=== PATIENT | female | born 1975 | race Caucasian/White ===

== ENCOUNTER 2018-08-31 15:00 | Observation (INO) ==
[2018-08-31 15:24] VITALS: BMI 29.5
--- NOTE | 2018-08-31 15:47 | RAD ---
Examination: PA chest one view History: Chest pain SOB Findings: Normal heart size with clear lungs and pleural spaces. There is no mediastinal or hilar abnormality. Impression: Examination within normal limits. Reported By:
[2018-08-31 15:48] LABS: BASOPHILS # (AUTO) 0.1 X10^3/uL (0.0-0.1); BASOPHILS % (AUTO) 1.3 % (0.2-1.0); EOSINOPHILS # (AUTO) 0.6 x10^3/uL (0.0-0.2); HEMATOCRIT 38.3 % (36.0-47.0); HEMOGLOBIN 13.3 g/dL (12.0-16.0); LYMPHOCYTES # (AUTO) 2.2 X10^3/uL (1.3-2.9); LYMPHOCYTES % (AUTO) 25.5 % (21.0-51.0); MEAN CORPUSCULAR HEMOGLOBIN 32.3 pg (27.0-34.0); MEAN CORPUSCULAR HGB CONC 34.8 g/dL (33.0-35.0); MEAN CORPUSCULAR VOLUME 92.9 fL (80.0-100.0); MEAN PLATELET VOLUME 7.8 fL (7.4-11.0); MONOCYTES # (AUTO) 0.8 x10^3/uL (0.3-0.8); MONOCYTES % (AUTO) 9.1 % (0.0-13.0); NEUTROPHILS % (AUTO) 57.1 % (42.0-75.0); PLATELET COUNT 237 X10^3/uL (150.0-450.0); RED BLOOD COUNT 4.12 X10^6/uL (3.5-5.4); RED CELL DISTRIBUTION WIDTH 13.6 % (11.6-16.5); WHITE BLOOD COUNT 8.7 X10^3/uL (3.6-10.0)
[2018-08-31 16:07] LABS: BLOOD UREA NITROGEN 19 mg/dL (7-18); CALCIUM 9.2 mg/dL (8.5-10.1); CARBON DIOXIDE 27.4 mmol/L (21-32); CHLORIDE 106 mmol/L (98-107); CREATININE 0.89 mg/dL (0.55-1.02); SODIUM 139 mmol/L (136-145); TROPONIN I < 0.02 ng/mL (0-1.5); eGFR NON BLACK RACES > 60 (>60)
[2018-08-31 16:12] LABS: ALANINE AMINOTRANSFERASE 24 Units/L (12-78); ALBUMIN 3.7 g/dL (3.4-5.0); ALKALINE PHOSPHATASE 73 Units/L (46-116); ASPARTATE AMINO TRANSFERASE 19 Units/L (15-37); CKMB % 0.4 % (<4); CREATINE KINASE 401 Units/L (26-192); CREATINE KINASE MB 1.4 ng/mL (0-4.0); MAGNESIUM 2.2 mg/dL (1.7-2.9); TOTAL PROTEIN 7.1 g/dL (6.4-8.2)
--- NOTE | 2018-08-31 17:12 | DR.CP ---
HPI - Time Seen Time seen: 17:08 - PCP Primary Care Physician: HARRY - Complaint Chief Complaint Doctor Comments: Patient is complaining of xiphoid chest pain described as having "pressure in the center of her chest for the past 12 hours getting worst when she walks. She is also complaining of PABLO with SOB with her heart racing when she walks. She denies nausea, vomiting, cold, cough, fever or chills. States she is a patient of Dr. Alcantara and she is taking Albilify; prozac; and dexilant. she stopped smoking two months ago and was smoking 2-3 cigarettes daily. She drinks at times but denies drug usage. Chief Complaint:: PT C/O CHEST PAIN, SOB, N/V. LT SHOULDER PAIN AND SWEATS. PT STATES SHE WAS WOKE UP WITH THE PAIN. PT STATES THE PAIN HAS BEEN OFF AND ON ALL DAY. - Reviewed Nurses Notes Review: Yes - Source History Provided: Patient - Mode of Arrival Mode of Arrival: Ambulatory - Timing Onset of Chief Complaint: 08/31/18 Came on: Suddenly Pain: Present Now - Duration Duration: Intermittent How lon Duration: Hours - Location Location of Chest Pain: Chest Chest Pain Radiation Location: None - Context Onset: At rest Cardiac Risk Factors: Family History PE Risk Factors: None History of: None Prehospital Care: None - Quality Quality: Pressure like - Severity Severity: Moderate - Modifying Factors Worsens: Exertion, Movement Impoves: Nothing - Associated Signs and Symptoms Associated Signs and Symptoms: None PMH - PMH Past Medical History: Yes Past Medical History Comment: BIPOLAR, CERVICAL CA Past Surgical History: Yes Surgical History: Appendectomy, Hysterectomy, Other Past Surgical History Comment: CYST REMOVAL - Family History History of Family Medical Conditions: No - Social History Does any household member use tobacco: No Alcohol Use: Rarely Do you use any recreational Drugs:: No Lives With: Family Lives Where: Home - infectious screening In the last 2 months have you had wt loss of >10#?: NO Have you had fever, night sweats or hemotysis?: No Have you traveled outside the country in the last 6 months?: No Isolation: Standard ROS - Review of Systems Constitutional: No Symptoms Reported Eyes: No Symptoms Reported ENTM: No Symptoms Reported Respiratoy: No Symptoms Reported, Short of Breath Cardiovascular: No Symptoms Reported, Chest Pain Gastrointestinal/Abdominal: No Symptoms Reported. negative: See HPI, Abdominal Pain, Constipation, Diarrhea, Nausea, Vomiting, Food Intolerance, Other Genitourinary: No Symptoms Reported. negative: See HPI, Discharge, Dysuria, Frequency, Hematuria, Pain, Bleeding, Other Neurological: No Symptoms Reported, Weakness Musculoskeletal: No Symptoms Reported Integumentary: No Symptoms Reported. negative: See HPI, Change in Color, Change in Hair/Nails, Dryness, Lesions, Lumps, Rash, Itching, Wound, Bruises, Juandice, Other Hematologic/Lymphatic: No Symptoms Reported. negative: See HPI, Anemia, Blood Clots, Easy Bleeding, Easy Bruising, Swollen Glands, Lymphadenopathy, Other Endocrine: No Symptoms Reported Psychiatric: No Symptoms Reported, Anxiety, Depression PE - General Limitations: No Limitations General Appearance: Alert, In No Apparent Distress - Head Head Exam: Normal Inspection, Atraumatic, Normocephalic - Eyes Eye exam: Normal Appearance, PERRL, EOMI. negative: Scleral Icterus, Conjunctival Injection, Nystagmus, Miosis, Mydrasis, Periorbital Swelling, Periorbital Tenderness, Other - ENT ENT Exam: Normal Exam, Normal Oropharynx, Normal External Ear Exam, Mucous Membranes Moist, TM's Normal Bilaterally - Chest Chest Inspection: Normal Inspection, Symmetric Chest Wall Rise. negative: Tenderness, Rash, Abscess, Other - Respiratory Respiratory Exam: Normal Lung Sounds Bilat, Prolonged Expiratory Phase Respiratory Exam: Bilateral Clear to Auscultation - Cardiovascular Cardiovascular Exam: Regular Rate, Normal Rhythm, Normal Heart Sounds Pulse: Normal. negative: Radial, Femoral, Left, Right, Absent, Weak, Irregular Edema: Normal - Abdominal Exam Abdominal Exam: Normal Inspection, Normal Bowel Sounds, Soft Abdominal Tenderness: Epigastrium (slight). negative: RUQ, RLQ, LUQ, LLQ, Suprapubic, Diffuse, Mild, Moderate, Severe, Other - Extremities Extremities Exam: Normal Inspection, Full ROM, Normal Capillary Refill. negative: Tenderness, Edema, Joint Swelling, Calf Tenderness, Other - Back Back Exam: Normal Inspection, Full ROM. negative: Tenderness, (R) CVA Tenderness, (L) CVA Tenderness, Muscle Spasm, Paraspinal Tenderness, Vertebral Tenderness, Rashes, (R) Sciatic Notch Tenderness, (L) Sciatic Notch Tendern, (R) Straight Leg Raise, (L) Straight Leg Raise, Other - Neurologic Neurological Exam: Alert, Oriented X3, CN II-XII Intact, Normal Gait, Reflexes Normal - Psychiatric Psychiatric Exam: Normal Affect, Normal Mood. negative: Depressed, Agitated, Anxious, Flat Affect, Manic, Homicidal Ideation, Suicidal Ideation, Other - Skin Skin Exam: Warm, Dry, Intact, Normal Color - Vitals Vitals: Temperature 97.7 F Pulse Rate [Right Radial] 78 Pulse Rate 88 Respiratory Rate 18 Blood Pressure [Left Arm] 107/54 Blood Pressure 110/52 O2 Sat by Pulse Oximetry 99 Course - Reevaluation 1st: Improved - Consultation Called: 18:52 Call Returned: 18:52 (Dr. Frances to admit) - Education/Counseling Education/Counseling: Patient, Family Educated On: Treatment, Diagnosis, Needs for Follow Up ROR - Labs Reviewed Laboratory Results Reviewed?: Yes (All labs and x-ray results reviewed and discussed with patient) Result Diagrams: 08/31/18 15:39 08/31/18 15:39 - XRAY XRAY Interpreted by: Radiologist (CXR: No acute cardiopulmonary changes) - EKG Rate: 81 [place]: Normal Rhythm: NSR Block: None Hypertrophy: None ST: Normal, Nonsp - Labs Reviewed Laboratory: WBC 8.7 X10^3/uL (3.6-10.0) 08/31/18 15:39 RBC 4.12 X10^6/uL (3.5-5.4) 08/31/18 15:39 Hgb 13.3 g/dL (12.0-16.0) 08/31/18 15:39 Hct 38.3 % (36.0-47.0) 08/31/18 15:39 MCV 92.9 fL (80.0-100.0) 08/31/18 15:39 MCH 32.3 pg (27.0-34.0) 08/31/18 15:39 MCHC 34.8 g/dL (33.0-35.0) 08/31/18 15:39 RDW 13.6 % (11.6-16.5) 08/31/18 15:39 Plt Count 237 X10^3/uL (150.0-450.0) 08/31/18 15:39 MPV 7.8 fL (7.4-11.0) 08/31/18 15:39 Neut % (Auto) 57.1 % (42.0-75.0) 08/31/18 15:39 Lymph % (Auto) 25.5 % (21.0-51.0) 08/31/18 15:39 [place] % (Auto) 9.1 % (0.0-13.0) 08/31/18 15:39 Eos % (Auto) 7.0 % (0.9-2.9) H 08/31/18 15:39 Baso % (Auto) 1.3 % (0.2-1.0) H 08/31/18 15:39 Neut # (Auto) 5.0 x10^3/uL (2.2-4.8) H 08/31/18 15:39 Lymph # (Auto) 2.2 X10^3/uL (1.3-2.9) 08/31/18 15:39 [place] # (Auto) 0.8 x10^3/uL (0.3-0.8) 08/31/18 15:39 Eos # (Auto) 0.6 x10^3/uL (0.0-0.2) H 08/31/18 15:39 Baso # (Auto) 0.1 X10^3/uL (0.0-0.1) 08/31/18 15:39 Absolute Nucleated RBC 0.1 /100WBC 08/31/18 15:39 INR Target Range - 08/31/18 15:39 INR 1.01 (0.8-1.3) 08/31/18 15:39 APTT 24.9 SECONDS (22.9-36.5) 08/31/18 15:39 PTT Comment - 08/31/18 15:39 D-Dimer 121 ng/mL (0-400) 08/31/18 15:39 Sodium 139 mmol/L (136-145) 08/31/18 15:39 Corrected Sodium TNP 08/31/18 15:39 Potassium 4.5 mmol/L (3.5-5.1) 08/31/18 15:39 Chloride 106 mmol/L (98-107) 08/31/18 15:39 Carbon Dioxide 27.4 mmol/L (21-32) 08/31/18 15:39 BUN 19 mg/dL (7-18) H 08/31/18 15:39 Creatinine 0.89 mg/dL (0.55-1.02) 08/31/18 15:39 Est GFR (MDRD) Af Amer > 60 (>60) 08/31/18 15:39 Est GFR (MDRD) Non-Af > 60 (>60) 08/31/18 15:39 Glucose 75 mg/dL (65-99) 08/31/18 15:39 Calcium 9.2 mg/dL (8.5-10.1) 08/31/18 15:39 Corrected Calcium TNP 08/31/18 15:39 Magnesium 2.2 mg/dL (1.7-2.9) 08/31/18 15:39 Total Bilirubin 0.20 mg/dL (0.2-1.0) 08/31/18 15:39 AST 19 Units/L (15-37) 08/31/18 15:39 ALT 24 Units/L (12-78) 08/31/18 15:39 Alkaline Phosphatase 73 Units/L (46-116) 08/31/18 15:39 Creatine Kinase 395 Units/L (26-192) H 08/31/18 17:23 CK-MB (CK-2) 1.3 ng/mL (0-4.0) 08/31/18 17:23 CK/CKMB % Calc 0.3 % (<4) 08/31/18 17:23 Troponin I < 0.02 ng/mL (0-1.5) 08/31/18 17:23 Total Protein 7.1 g/dL (6.4-8.2) 08/31/18 15:39 Albumin 3.7 g/dL (3.4-5.0) 08/31/18 15:39 Globulin 3.4 g/dL (2.5-4.5) 08/31/18 15:39 Albumin/Globulin Ratio 1.1 Ratio (1.1-2.1) 08/31/18 15:39 Opioid - Opioid Risk Tool Total: 0 Total Score Risk Category: Low Risk - Diagnosis Discharge Problem: Chest pain, rule out acute myocardial infarction, Dyspnea on exertion - Discharge Plan Disposition: ADMITTED INPATIENT Condition: Stable - Follow ups/Referrals Follow ups/Referrals: LOREN MCDONALD [Primary Care Provider] - 3 days - Instructions
[2018-08-31] MEDS ORDERED: ZOFRAN INJ 4 MG VIAL IVP ONE (17:39)
[2018-08-31] MEDS ORDERED: ZOFRAN INJ 4 MG VIAL ONE (17:39)
[2018-08-31] MEDS ORDERED: TORADOL 30 MG VIAL IVP ONE (17:44)
[2018-08-31] MEDS ORDERED: TORADOL 30 MG VIAL ONE (17:45)
[2018-08-31 17:49] LABS: CKMB % 0.3 % (<4); CREATINE KINASE 395 Units/L (26-192); CREATINE KINASE MB 1.3 ng/mL (0-4.0); TROPONIN I < 0.02 ng/mL (0-1.5)
[2018-08-31] MEDS: NORCO 5/325 MG TAB PO PRN (20:44)
[2018-08-31] MEDS: SOMA TAB 350 MG PO PRN (20:47)
[2018-08-31 23:44] LABS: CKMB % 0.4 % (<4); CREATINE KINASE 329 Units/L (26-192); CREATINE KINASE MB 1.2 ng/mL (0-4.0); TROPONIN I < 0.02 ng/mL (0-1.5)
[2018-09-01] MEDS: NORCO 5/325 MG TAB PO PRN ×3 (04:56→19:30)
[2018-09-01 05:34] LABS: BASOPHILS # (AUTO) 0.1 X10^3/uL (0.0-0.1); BASOPHILS % (AUTO) 1.3 % (0.2-1.0); EOSINOPHILS # (AUTO) 0.7 x10^3/uL (0.0-0.2); EOSINOPHILS % (AUTO) 9.7 % (0.9-2.9); HEMATOCRIT 36.6 % (36.0-47.0); HEMOGLOBIN 12.7 g/dL (12.0-16.0); LYMPHOCYTES # (AUTO) 2.4 X10^3/uL (1.3-2.9); LYMPHOCYTES % (AUTO) 35.7 % (21.0-51.0); MEAN CORPUSCULAR HGB CONC 34.8 g/dL (33.0-35.0); MEAN CORPUSCULAR VOLUME 94.8 fL (80.0-100.0); MEAN PLATELET VOLUME 8.8 fL (7.4-11.0); MONOCYTES # (AUTO) 0.6 x10^3/uL (0.3-0.8); MONOCYTES % (AUTO) 8.4 % (0.0-13.0); NEUTROPHILS # (AUTO) 3.1 x10^3/uL (2.2-4.8); NEUTROPHILS % (AUTO) 44.9 % (42.0-75.0); PLATELET COUNT 236 X10^3/uL (150.0-450.0); RED BLOOD COUNT 3.86 X10^6/uL (3.5-5.4); RED CELL DISTRIBUTION WIDTH 13.6 % (11.6-16.5); WHITE BLOOD COUNT 6.8 X10^3/uL (3.6-10.0)
[2018-09-01 05:54] LABS: ALANINE AMINOTRANSFERASE 18 Units/L (12-78); ALBUMIN 3.3 g/dL (3.4-5.0); ALKALINE PHOSPHATASE 66 Units/L (46-116); ASPARTATE AMINO TRANSFERASE 16 Units/L (15-37); BLOOD UREA NITROGEN 20 mg/dL (7-18); CALCIUM 8.5 mg/dL (8.5-10.1); CHLORIDE 106 mmol/L (98-107); CHOL/HDL RATIO 3.9 (0.0-5.0); CHOLESTEROL 169 mg/dL (0-200); CKMB % 0.4 % (<4); COR CA(FOR HYPOALB) 9.1 mg/dL (8.5-10.1); COR NA(FOR HYPERGLY) 141 mmol/L (136-145); CREATINE KINASE 258 Units/L (26-192); CREATINE KINASE MB < 1.0 ng/mL (0-4.0); CREATININE 0.91 mg/dL (0.55-1.02); HDL CHOLESTEROL 43 mg/dL (40-60); SODIUM 141 mmol/L (136-145); TOTAL PROTEIN 6.4 g/dL (6.4-8.2); TRIGLYCERIDES 230 mg/dL (0-150); TROPONIN I < 0.02 ng/mL (0-1.5); eGFR NON BLACK RACES > 60 (>60)
--- NOTE | 2018-09-01 06:44 | RAD ---
HISTORY: Shortness of breath Study: Single view chest Comparison: 08/31/2018 Findings: No infiltrate, effusion or pneumothorax identified. The cardiac and mediastinal contours are within normal limits. The soft tissues are unremarkable. IMPRESSION: 1. No acute cardiopulmonary abnormality. Reported By:
[2018-09-01] MEDS: ZOFRAN TAB 4 MG SL PRN ×2 (09:04→19:30)
[2018-09-01] MEDS: FIORICET TAB PO PRN ×2 (12:10→19:30)
[2018-09-01 13:59] LABS: CKMB % 0.5 % (<4); CREATINE KINASE 229 Units/L (26-192); CREATINE KINASE MB 1.2 ng/mL (0-4.0); TROPONIN I < 0.02 ng/mL (0-1.5)
[2018-09-01] MEDS: SOMA TAB 350 MG PO PRN (19:30)
[2018-09-01 20:52] VITALS: BP 116/60
== END 2018-09-01 20:00 | disposition home or self-care (01) ==
LOC: MED/SURG 15:20 → ER 15:20 → MED/SURG 19:11
PROVIDERS: ADMIT Internal Medicine; ATTEND Internal Medicine
DX: M25.512 Pain in left shoulder; R07.89 Other chest pain; R06.02 Shortness of breath; R11.2 Nausea with vomiting, unspecified
CPT/HCPCS: 36415; 71010; 71045; 80053; 80061; 82550; 82553; 83735; 84484; 85025; 85378; 85610; 85730; 93005; 94760; 96365; 96374; 96375; 99284; A4216; A4222; G0378; J1885; J2405; S0119; S0181